=== PATIENT | female | born 1950 | race Caucasian/White ===

== ENCOUNTER → 2017-07-20 | Outpatient (CLI) | payer MEDICARE ==
--- NOTE | 2017-07-21 13:02 | MM ---
Reason for exam: screening (asymptomatic). Last mammogram was performed 1 year ago. History: Patient is postmenopausal. Family history of breast cancer in maternal aunt at age 52, breast cancer in paternal aunt, and breast cancer in sister at age 50. Benign US biopsy breast VAD RT of the right breast, April 28, 2015. US discontinued breast core RT of the right breast, April 17, 2015. Benign lumpectomy of the right breast, February 03, 2007. Benign excisional biopsy of the right breast, 2002. Took hormonal contraceptives for 6 years beginning at age 21. Took estrogen for 6 years beginning at age 45. Physical Findings: A clinical breast exam by your physician is recommended on an annual basis and results should be correlated with mammographic findings. MG 3D Screening Mammo W/Cad Bilateral CC and MLO view(s) were taken. Prior study comparison: July 14, 2016, bilateral MG 3d screening mammo w/ cad. April 28, 2015, right breast MG diagnostic mammo RT wo CAD. There are scattered fibroglandular densities. Previous mammotome biopsy in the right breast. 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 Generator device over the left pectoralis major. Benign secretory calcifications bilaterally. ASSESSMENT: Benign, BI-RAD 2 RECOMMENDATION: Routine screening mammogram of both breasts in 1 year. MTDD
== END | disposition home or self-care (01) ==
LOC: RADMAMWWP 10:40
PROVIDERS: ATTEND Family Medicine
DX: Z12.31 Encounter for screening mammogram for malignant neoplasm of breast (principal)
CPT/HCPCS: 77063; G0202